=== PATIENT | female | born 1965 | race Caucasian/White ===

== ENCOUNTER → 2018-04-12 | Outpatient (CLI) | payer OTHER ==
[~2018-04-12] MED LIST: ALBUS PO; BIOTCAP PO; ISOS30 PO; NAPR500 PO; NITR0.4S SL; NORV2.5T11 PO; ORPH100T PO; SYNT100T PO
== END ==
LOC: HRSP 09:39
PROVIDERS: ATTEND Internal Medicine Pulmonary Disease
DX: J45.909 Unspecified asthma, uncomplicated (principal)
CPT/HCPCS: 36600; 82805; 94060; 94618; 94726; 94729